=== PATIENT | female | born 1965 | race Caucasian/White ===

== ENCOUNTER 2021-02-05 09:17 | Outpatient (CLI) | payer OTHER | END 2021-02-05 20:38 | disposition home or self-care (01) | LOC: SUS 09:17 | PROVIDERS: ATTEND Internal Medicine | DX: S41.011A Laceration without foreign body of right shoulder, initial encounter (principal); M19.011 Primary osteoarthritis, right shoulder; N20.0 Calculus of kidney; R16.0 Hepatomegaly, not elsewhere classified; M75.101 Unspecified rotator cuff tear or rupture of right shoulder, not specified as traumatic; X58.XXXA Exposure to other specified factors, initial encounter; Y93.89 Activity, other specified; Y92.89 Other specified places as the place of occurrence of the external cause; Y99.8 Other external cause status | CPT/HCPCS: 73221; 76700-TC ==

== ENCOUNTER 2021-05-12 20:58 | Emergency (ER) | payer OTHER ==
[~2021-05-12] VITALS: Ht 165.1 cm; Wt 83.9 kg
[2021-05-12 21:00] VITALS: BP_SYST 153
--- NOTE | 2021-05-12 21:00 | NUR ---
Patient triaged and placed in waiting room. VSS and patient appears in no acute distress at this time. awaiting available bed, and MD notified of need for MSE.
--- NOTE | 2021-05-12 22:04 | NUR ---
Patient to ER bed [facility] to [facility] for evaluation. Side rails up. Report given to ROYA LEWIS(REG).
--- NOTE | 2021-05-12 22:12 | NUR ---
55 YR OLD AOX4, AMBULATORY FEMALE WITH COMPLAINT OF TOE PAIN OF THE LEFT FOOT DUE TO DROPPING AN ITEM ON THE TOE ABOUT 4 HOURS AGO. PT NOTED TO HAVE SMALL CUT WITH NO BLEEDING ON THE FOURTH TOE OF THE LEFT FOOT. PT REPORTS 7/10 TOE PAIN WITH MOVEMENT. PT CONCERNED ABOUT POSSIBLE FRACTURE OF TOE. PENDING EVALICIA AND XRAY AT THIS TIME.
--- NOTE | 2021-05-12 22:20 | NUR ---
ER at bedside examining patient.
--- NOTE | 2021-05-13 00:17 | NUR ---
Patient given written and verbal discharge instructions and verbalizes understanding. ER MD discussed with patient the results and treatment provided. Patient in stable condition. ID arm band removed. No Rx of given. Patient educated on pain management and to follow up with PMD. Pain Scale 3/10. Opportunity for questions provided and answered. Medication side effect fact sheet provided.
[2021-05-13 00:18] VITALS: BP_SYST 132
== END 2021-05-13 00:19 | disposition home or self-care (01) ==
LOC: SED 20:58
DX: S92.532A Displaced fracture of distal phalanx of left lesser toe(s), initial encounter for closed fracture (principal); Z79.899 Other long term (current) drug therapy; Z88.1 Allergy status to other antibiotic agents; W22.8XXA Striking against or struck by other objects, initial encounter; Y93.89 Activity, other specified; Y92.89 Other specified places as the place of occurrence of the external cause; Y99.8 Other external cause status
CPT/HCPCS: 99283

== ENCOUNTER 2022-01-04 12:45 | Outpatient (CLI) | payer OTHER | END 2022-01-04 17:51 | disposition home or self-care (01) | LOC: SMA 12:45 | PROVIDERS: ATTEND Internal Medicine | DX: R92.2 Inconclusive mammogram (principal); N64.89 Other specified disorders of breast | CPT/HCPCS: 77066 ==

== ENCOUNTER 2022-10-26 06:26 | Emergency (ER) | payer OTHER ==
[~2022-10-26] VITALS: Ht 162.6 cm; Wt 80.7 kg
[2022-10-26 06:53] VITALS: BP_SYST 144; PULSE 75; RESP 17; TEMP 96.7; O2SAT 97
[2022-10-26] MEDS ORDERED: KETOROLAC TROMETHAMINE 60 MG/2 ML VIAL IM ONE (07:00)
[2022-10-26] MEDS ORDERED: NAPR-690 PO (08:57)
[2022-10-26 09:27] VITALS: BP_SYST 144; PULSE 75; RESP 17; TEMP 96.7; O2SAT 97
== END 2022-10-26 09:30 | disposition home or self-care (01) ==
LOC: SED 06:26
DX: S82.041A Displaced comminuted fracture of right patella, initial encounter for closed fracture (principal); S63.631A Sprain of interphalangeal joint of left index finger, initial encounter; S09.90XA Unspecified injury of head, initial encounter; Z79.899 Other long term (current) drug therapy; W18.40XA Slipping, tripping and stumbling without falling, unspecified, initial encounter; Y93.89 Activity, other specified; Y92.89 Other specified places as the place of occurrence of the external cause; Y99.8 Other external cause status
CPT/HCPCS: 99285; 70450; 73090; 73140; 73560; 76376; 96372; J1885

== ENCOUNTER 2022-11-18 16:06 | Outpatient (CLI) | payer OTHER ==
[~2022-11-18 16:06] MED LIST: NAPR-690 PO
== END 2022-11-18 20:52 | disposition home or self-care (01) ==
LOC: SRD 16:06
PROVIDERS: ATTEND Student in an Organized Health Care Education/Training Program
DX: S82.031A Displaced transverse fracture of right patella, initial encounter for closed fracture (principal); X58.XXXA Exposure to other specified factors, initial encounter; Y93.89 Activity, other specified; Y92.89 Other specified places as the place of occurrence of the external cause; Y99.8 Other external cause status
CPT/HCPCS: 73560-TC

== ENCOUNTER 2022-12-18 15:23 | Outpatient (CLI) | payer OTHER | END 2022-12-18 19:30 | disposition home or self-care (01) | LOC: SRD 15:23 | PROVIDERS: ATTEND Internal Medicine | DX: S82.301D Unspecified fracture of lower end of right tibia, subsequent encounter for closed fracture with routine healing (principal); M76.891 Other specified enthesopathies of right lower limb, excluding foot; X58.XXXD Exposure to other specified factors, subsequent encounter | CPT/HCPCS: 73564 ==

== ENCOUNTER 2023-07-25 09:42 | Outpatient (CLI) | payer OTHER | END 2023-07-25 18:00 | disposition home or self-care (01) | LOC: SMA 09:42 | PROVIDERS: ATTEND Internal Medicine | DX: Z12.31 Encounter for screening mammogram for malignant neoplasm of breast (principal) | CPT/HCPCS: 77067 ==

== ENCOUNTER 2023-08-11 12:02 | Inpatient (IN) | payer OTHER ==
[~2023-08-11] VITALS: Ht 162.6 cm; Wt 77.1 kg
[2023-08-11 12:10] VITALS: BP_SYST 177; PULSE 85; RESP 22; TEMP 98.3; O2SAT 98
[2023-08-11 12:34] LABS: BASOPHILS # (AUTO) 0.1 K/uL (0.0-0.2); BASOPHILS % (AUTO) 0.6 % (0.0-2.0); EOSINOPHILS # (AUTO) 0.1 K/uL (0.0-0.4); EOSINOPHILS % (AUTO) 1.6 % (0.0-4.0); HEMATOCRIT 43.8 % (36-48); HEMOGLOBIN 14.8 g/dL (12.0-16.0); LYMPHOCYTES # (AUTO) 2.6 K/uL (1.0-5.5); LYMPHOCYTES % (AUTO) 32.2 % (20.5-51.5); MEAN CORPUSCULAR HEMOGLOBIN 30 pg (27-31); MEAN CORPUSCULAR HGB CONC 34 % (32-36); MEAN CORPUSCULAR VOLUME 88 fL (79.0-98.0); MONOCYTES # (AUTO) 0.6 K/uL (0.0-1.0); MONOCYTES % (AUTO) 7.1 % (1.7-9.3); NEUTROPHILS # (AUTO) 4.8 K/uL (1.8-7.7); NEUTROPHILS % (AUTO) 58.5 % (40.0-70.0); PLATELET COUNT (AUTO) 261 K/uL (130-430); RED BLOOD CELL COUNT(AUTO) 4.96 MIL/uL (4.2-6.2); RED CELL DISTRIBUTION WIDTH 13.1 % (9.0-15.0); WHITE BLOOD COUNT (AUTO) 8.1 K/uL (4.8-10.8)
[2023-08-11 12:46] LABS: PROTHROMBIN TIME 9.9 SECS (9.5-12.5)
[2023-08-11 12:51] LABS: ANION GAP 11 (5-15); CALCIUM 9.4 mg/dL (8.4-11.0); CARBON DIOXIDE 27 mmol/L (23-29); CHLORIDE 100 mmol/L (98-107); CREATININE 0.81 mg/dL (0.55-1.30); GFR AFRICAN AMERICAN 93 mL/min (>90); POTASSIUM 4.3 mmol/L (3.5-5.1); SODIUM SERUM 138 mmol/L (136-145); UREA NITROGEN, BLOOD 10 mg/dL (8-21)
[2023-08-11 12:53] LABS: GFR NON AFRICAN-AMERICAN 77 mL/min (>90); GLUCOSE 405 mg/dL (74-106)
[2023-08-11 13:00] LABS: ACETONE, SERUM NEGATIVE (NEGATIVE)
[2023-08-11] MEDS: ASPIRIN 81 MG TABLET(ECOTRIN) PO ONE (14:05)
[2023-08-11] MEDS: INSULIN REGULAR, HUMAN 100 UNITS/ML, 3 ML VIAL (humuLIN R) SUBCUT PRN ×2 (15:33→17:59)
[2023-08-11] MEDS ORDERED: INSULIN REGULAR, HUMAN 10 UNITS/0.1 ML, 3 ML VIAL ONE ×3 (15:34→21:29)
[2023-08-11] MEDS ORDERED: *LOVENOX 1MG/KG Q12H/PHARMACY XX PRN (17:00)
[2023-08-11] MEDS ORDERED: DEXTROSE 50% JECT 50 ML DISP.SYRIN IVP PRN (17:15)
[2023-08-11] MEDS ORDERED: ASPI-1393 PO (17:21)
[2023-08-11] MEDS ORDERED: VITD2000 PO (17:21)
[2023-08-11] MEDS ORDERED: METF-381 PO (17:21)
[2023-08-11] MEDS: METOPROLOL TARTRATE 25 MG TABLET PO ONE (17:45)
[2023-08-11] MEDS: ENOXAPARIN SODIUM 80 MG/0.8 ML SYRINGE SUBCUT ONE (17:45)
[2023-08-11] MEDS: PANTOPRAZOLE SODIUM 40 MG TAB PO ONE (17:45)
[2023-08-11] MEDS: LOSARTAN POTASSIUM 25 MG TABLET PO ONE (17:46)
[2023-08-11] MEDS: ATORVASTATIN 20 MG TABLET PO ONE (19:18)
[2023-08-11] MEDS: METOPROLOL TARTRATE 25 MG TABLET PO SCH (21:00)
[2023-08-11] MEDS ORDERED: METOPROLOL TARTRATE 25 MG TABLET PO SCH (21:00)
[2023-08-11 23:35] LABS: BILIRUBIN,URINE NEGATIVE (NEGATIVE); BLOOD, URINE 1+ (NEGATIVE); CLARITY/URINE CLOUDY (CLEAR); COLOR,URINE YELLOW (YELLOW); GLUCOSE,URINE 3+ (NEGATIVE); KETONES,URINE NEGATIVE (NEGATIVE); LEUKOCYTE ESTERASE ,URINE 2+ (NEGATIVE); NITRITE, URINE NEGATIVE (NEGATIVE); PROTEIN URINE NEGATIVE (NEGATIVE); UROBILINOGEN,URINE 0.2 (0.2-1.0)
[2023-08-11 23:48] LABS: BACTERIA,URINE MANY /HPF (None Seen); WBC,URINE >100 /HPF (0-3)
[2023-08-12 00:58] VITALS: BP_SYST 140; PULSE 69; RESP 18; TEMP 97.8; O2SAT 97
[2023-08-12 01:47] VITALS: BP_SYST 140; PULSE 69; RESP 16; TEMP 97.8; O2SAT 97
[2023-08-12 04:46] LABS: BASOPHILS # (AUTO) 0.1 K/uL (0.0-0.2); BASOPHILS % (AUTO) 0.7 % (0.0-2.0); EOSINOPHILS # (AUTO) 0.1 K/uL (0.0-0.4); EOSINOPHILS % (AUTO) 1.4 % (0.0-4.0); HEMATOCRIT 42.1 % (36-48); HEMOGLOBIN 14.6 g/dL (12.0-16.0); LYMPHOCYTES # (AUTO) 3.9 K/uL (1.0-5.5); LYMPHOCYTES % (AUTO) 42.8 % (20.5-51.5); MEAN CORPUSCULAR HEMOGLOBIN 30 pg (27-31); MEAN CORPUSCULAR HGB CONC 35 % (32-36); MEAN CORPUSCULAR VOLUME 88 fL (79.0-98.0); MONOCYTES # (AUTO) 0.7 K/uL (0.0-1.0); MONOCYTES % (AUTO) 7.8 % (1.7-9.3); NEUTROPHILS # (AUTO) 4.3 K/uL (1.8-7.7); NEUTROPHILS % (AUTO) 47.3 % (40.0-70.0); PLATELET COUNT (AUTO) 246 K/uL (130-430); RED BLOOD CELL COUNT(AUTO) 4.81 MIL/uL (4.2-6.2); RED CELL DISTRIBUTION WIDTH 13.3 % (9.0-15.0); WHITE BLOOD COUNT (AUTO) 9.1 K/uL (4.8-10.8)
[2023-08-12 05:14] LABS: ALBUMIN 3.3 g/dL (3.4-4.8); CALCIUM 8.9 mg/dL (8.4-11.0); CREATININE 0.65 mg/dL (0.55-1.30); FREE T4 (FREE THYROXINE) 0.9 ng/dL (0.6-1.6); POTASSIUM 3.5 mmol/L (3.5-5.1); THYROID STIMULATING HORMONE 1.97 uIu/mL (0.34-4.82); TOTAL BILIRUBIN 0.6 mg/dL (0.0-1.0)
[2023-08-12] MEDS: LOSARTAN POTASSIUM 25 MG TABLET PO SCH (09:00)
[2023-08-12] MEDS: ASPIRIN 81 MG TABLET(ECOTRIN) PO SCH (09:31)
[2023-08-12] MEDS: ATORVASTATIN 20 MG TABLET PO SCH (09:31)
[2023-08-12] MEDS: PANTOPRAZOLE SODIUM 40 MG TAB PO SCH (09:31)
[2023-08-12] MEDS: ENOXAPARIN SODIUM 80 MG/0.8 ML SYRINGE SUBCUT SCH (09:32)
[2023-08-12] MEDS: ACETAMINOPHEN 325 MG TABLET PO PRN (09:35)
[2023-08-12 10:35] VITALS: BP_SYST 147; PULSE 72; RESP 16; TEMP 97.7; O2SAT 99
== END 2023-08-12 11:10 | disposition short-term general hospital (02) | DRG 282 ==
LOC: SED 12:02 → STU 13:50
PROVIDERS: ADMIT Internal Medicine; ATTEND Internal Medicine
DX: I21.4 Non-ST elevation (NSTEMI) myocardial infarction (principal); E11.9 Type 2 diabetes mellitus without complications; I10 Essential (primary) hypertension; E78.5 Hyperlipidemia, unspecified; Z79.899 Other long term (current) drug therapy
CPT/HCPCS: 36415; 71045; 80048; 80053; 80061; 81000; 81001; 81015; 82009; 82948; 83037; 83735; 83880; 84439; 84443; 84484; 85025; 85379; 85610; 85730; 87086; 93005; 93306; 99285; G0378; J1650; J1815

== ENCOUNTER 2023-09-22 10:47 | Outpatient (CLI) | payer OTHER ==
[~2023-09-22 10:47] MED LIST changes: +ASPI-1393 PO; +METF-381 PO; +VITD2000 PO
[2023-09-22 11:16] LABS: BILIRUBIN,URINE NEGATIVE (NEGATIVE); COLOR,URINE YELLOW (YELLOW); GLUCOSE,URINE 3+ (NEGATIVE); KETONES,URINE NEGATIVE (NEGATIVE); LEUKOCYTE ESTERASE ,URINE 1+ (NEGATIVE); NITRITE, URINE NEGATIVE (NEGATIVE); PH,URINE 5.5 (5.0-8.0); PROTEIN URINE TRACE (NEGATIVE); UROBILINOGEN,URINE 0.2 (0.2-1.0)
[2023-09-22 11:18] LABS: BASOPHILS # (AUTO) 0.1 K/uL (0.0-0.2); BASOPHILS % (AUTO) 0.6 % (0.0-2.0); BLOOD, URINE TRACE (NEGATIVE); CLARITY/URINE SLIGHTLY HAZY (CLEAR); EOSINOPHILS # (AUTO) 0.1 K/uL (0.0-0.4); EOSINOPHILS % (AUTO) 1.4 % (0.0-4.0); HEMATOCRIT 43.9 % (36-48); HEMOGLOBIN 14.9 g/dL (12.0-16.0); LYMPHOCYTES # (AUTO) 2.7 K/uL (1.0-5.5); LYMPHOCYTES % (AUTO) 26.9 % (20.5-51.5); MEAN CORPUSCULAR HEMOGLOBIN 30 pg (27-31); MEAN CORPUSCULAR HGB CONC 34 % (32-36); MEAN CORPUSCULAR VOLUME 89 fL (79.0-98.0); MONOCYTES # (AUTO) 0.6 K/uL (0.0-1.0); MONOCYTES % (AUTO) 5.5 % (1.7-9.3); NEUTROPHILS # (AUTO) 6.5 K/uL (1.8-7.7); NEUTROPHILS % (AUTO) 65.6 % (40.0-70.0); PLATELET COUNT (AUTO) 269 K/uL (130-430); RED BLOOD CELL COUNT(AUTO) 4.95 MIL/uL (4.2-6.2); RED CELL DISTRIBUTION WIDTH 13.3 % (9.0-15.0); WHITE BLOOD COUNT (AUTO) 9.9 K/uL (4.8-10.8)
[2023-09-22 11:39] LABS: BACTERIA,URINE FEW /HPF (None Seen)
[2023-09-22 12:33] LABS: ALBUMIN 4.3 g/dL (3.4-4.8); CALCIUM 9.6 mg/dL (8.4-11.0); CREATININE 0.61 mg/dL (0.55-1.30); THYROID STIMULATING HORMONE 1.33 uIu/mL (0.36-3.74); TOTAL BILIRUBIN 0.6 mg/dL (0.0-1.0); TOTAL PROTEIN, SERUM 8.2 g/dL (6.4-8.3)
== END 2023-09-22 18:55 | disposition home or self-care (01) ==
LOC: SLB 10:47
PROVIDERS: ATTEND Internal Medicine
DX: N20.0 Calculus of kidney (principal); E11.9 Type 2 diabetes mellitus without complications; E55.9 Vitamin D deficiency, unspecified; E56.9 Vitamin deficiency, unspecified
CPT/HCPCS: 36415; 80053; 80061; 81000; 81001; 81015; 83037; 84443; 85025

== ENCOUNTER 2023-09-26 10:11 | Outpatient (CLI) | payer OTHER | END 2023-09-26 19:36 | disposition home or self-care (01) | LOC: SLB 10:11 → SCT 19:36 | PROVIDERS: ATTEND Internal Medicine | DX: N20.0 Calculus of kidney (principal); K57.30 Diverticulosis of large intestine without perforation or abscess without bleeding; K76.0 Fatty (change of) liver, not elsewhere classified; I70.0 Atherosclerosis of aorta; Z90.49 Acquired absence of other specified parts of digestive tract ==

== ENCOUNTER 2023-10-06 11:27 | Outpatient (CLI) | payer OTHER ==
[2023-10-06 12:24] LABS: ALBUMIN 4.2 g/dL (3.4-4.8); CALCIUM 9.3 mg/dL (8.4-11.0); CREATININE 0.63 mg/dL (0.55-1.30); POTASSIUM 3.8 mmol/L (3.5-5.1); TOTAL BILIRUBIN 0.6 mg/dL (0.0-1.0)
== END 2023-10-06 19:43 | disposition home or self-care (01) ==
LOC: SLB 11:27
PROVIDERS: ATTEND Internal Medicine Cardiovascular Disease
DX: I10 Essential (primary) hypertension (principal); E11.9 Type 2 diabetes mellitus without complications; E78.5 Hyperlipidemia, unspecified
CPT/HCPCS: 36415; 80053; 80061; 83037

== ENCOUNTER 2023-10-22 19:58 | Emergency (ER) | payer OTHER ==
[~2023-10-22] VITALS: Ht 162.6 cm; Wt 81.2 kg
[2023-10-22 20:08] VITALS: BP_SYST 143; PULSE 77; RESP 20; TEMP 98; O2SAT 97
[2023-10-22] MEDS: HYDROcodone/ACETAMIN 5-325 MG TAB (NORCO/ VICODIN) PO ONE (20:40)
[2023-10-22] MEDS: ACETAMINOPHEN 500 MG TABLET PO ONE (20:42)
[2023-10-22 23:06] VITALS: BP_SYST 143; PULSE 77; RESP 20; TEMP 98; O2SAT 97
== END 2023-10-22 23:06 | disposition home or self-care (01) ==
LOC: SED 19:58
DX: S16.1XXA Strain of muscle, fascia and tendon at neck level, initial encounter (principal); S43.492A Other sprain of left shoulder joint, initial encounter; E11.9 Type 2 diabetes mellitus without complications; I10 Essential (primary) hypertension; Z98.61 Coronary angioplasty status; Z88.8 Allergy status to other drugs, medicaments and biological substances; Z79.899 Other long term (current) drug therapy; Z79.2 Long term (current) use of antibiotics; V89.2XXA Person injured in unspecified motor-vehicle accident, traffic, initial encounter; Y93.89 Activity, other specified; Y92.89 Other specified places as the place of occurrence of the external cause; Y99.8 Other external cause status
CPT/HCPCS: 72050; 73030; 99284

== ENCOUNTER 2023-12-15 10:06 | Outpatient (CLI) | payer OTHER ==
[2023-12-15 10:49] LABS: BILIRUBIN,URINE NEGATIVE (NEGATIVE); CLARITY/URINE CLEAR (CLEAR); COLOR,URINE YELLOW (YELLOW); GLUCOSE,URINE NEGATIVE (NEGATIVE); KETONES,URINE NEGATIVE (NEGATIVE); LEUKOCYTE ESTERASE ,URINE 2+ (NEGATIVE); NITRITE, URINE NEGATIVE (NEGATIVE); PROTEIN URINE NEGATIVE (NEGATIVE); UROBILINOGEN,URINE 0.2 (0.2-1.0)
[2023-12-15 10:56] LABS: BLOOD, URINE TRACE (NEGATIVE)
[2023-12-15 10:58] LABS: BASOPHILS # (AUTO) 0.1 K/uL (0.0-0.2); BASOPHILS % (AUTO) 0.7 % (0.0-2.0); EOSINOPHILS # (AUTO) 0.2 K/uL (0.0-0.4); EOSINOPHILS % (AUTO) 1.9 % (0.0-4.0); HEMATOCRIT 43.4 % (36-48); HEMOGLOBIN 14.7 g/dL (12.0-16.0); LYMPHOCYTES # (AUTO) 2.6 K/uL (1.0-5.5); LYMPHOCYTES % (AUTO) 31.6 % (20.5-51.5); MEAN CORPUSCULAR HEMOGLOBIN 30 pg (27-31); MEAN CORPUSCULAR HGB CONC 34 % (32-36); MEAN CORPUSCULAR VOLUME 88 fL (79.0-98.0); MONOCYTES # (AUTO) 0.5 K/uL (0.0-1.0); NEUTROPHILS # (AUTO) 4.9 K/uL (1.8-7.7); NEUTROPHILS % (AUTO) 59.8 % (40.0-70.0); PLATELET COUNT (AUTO) 334 K/uL (130-430); RED BLOOD CELL COUNT(AUTO) 4.94 MIL/uL (4.2-6.2); RED CELL DISTRIBUTION WIDTH 13.1 % (9.0-15.0); WHITE BLOOD COUNT (AUTO) 8.2 K/uL (4.8-10.8)
[2023-12-15 11:08] LABS: BACTERIA,URINE MODERATE /HPF (None Seen); RBC,URINE 0-3 /HPF (0-3)
[2023-12-15 11:29] LABS: ALBUMIN 4.2 g/dL (3.4-4.8); CALCIUM 9.6 mg/dL (8.4-11.0); CREATININE 0.62 mg/dL (0.55-1.30); POTASSIUM 4.3 mmol/L (3.5-5.1); THYROID STIMULATING HORMONE 1.47 uIu/mL (0.34-4.82); TOTAL BILIRUBIN 0.6 mg/dL (0.0-1.0); TOTAL PROTEIN, SERUM 7.8 g/dL (6.4-8.3)
[2023-12-15 11:37] LABS: HEMOGLOBIN A1C 8.48 % (<5.7)
== END 2023-12-15 19:54 | disposition home or self-care (01) ==
LOC: SLB 10:06
PROVIDERS: ATTEND Internal Medicine
DX: E78.5 Hyperlipidemia, unspecified (principal); R73.09 Other abnormal glucose; N39.0 Urinary tract infection, site not specified; R30.9 Painful micturition, unspecified
CPT/HCPCS: 82306; 84443; 82607; 80061; 80053; 83037; 36415; 87086; 85025; 81001; 81015; J7030; 81000